=== PATIENT | male | born 1985 | race Caucasian/White ===

== ENCOUNTER 2020-05-05 23:28 | Emergency (ER) | payer OTHER ==
[2020-05-05] MEDS ORDERED: LORAZEPAM INJ 2 MG/1 ML VIAL IV ONE (23:45)
--- NOTE | 2020-05-05 23:51 | ER Document Report ---
ED General - General Chief Complaint: Shortness Of Breath Stated Complaint: SHORT OF BREATH Time Seen by Provider: 05/05/20 23:36 Primary Care Provider: MILES ROQUE MD [ACTIVE STAFF] - 05/08/20 Notes: Patient is a 34-year-old male who comes emergency department for chief complaint of feeling short of breath, palpitations, and a squeezing tightness sensation across his chest for the past several hours. EMS reports that his initial heart rate was in the 170s, we did have him perform vagal maneuvers and they were g oing to do adenosine but patient declined. Patient states that he has resting tachycardia, his average heart rate is 90-110 with frequent elevations beyond this. Patient states he has had this ever since he was electrocuted in the , he is not on any rate control or cardiac medications, his only medication is Percocet for chronic back pain. He denies recreational drugs, smoking, stimulants/caffeine. He does report developing a cough for the past day or so, he denies fever, he denies any other complaints. - Related Data Allergies/Adverse Reactions: No Known Allergies Allergy (Unverified 11/02/12 12:53) Past Medical History - General Information source: Patient - Social History Smoking Status: Never Smoker Frequency of alcohol use: Occasional Drug Abuse: None Lives with: Family Family History: Reviewed & Not Pertinent Past Surgical History: Reports: Hx Orthopedic Surgery - elbow surgery - Immunizations Immunizations up to date: Yes Hx Diphtheria, Pertussis, Tetanus Vaccination: Yes Review of Systems - Review of Systems Constitutional: No symptoms reported EENT: No symptoms reported Cardiovascular: See HPI Respiratory: No symptoms reported Gastrointestinal: No symptoms reported Genitourinary: No symptoms reported Male Genitourinary: No symptoms reported Musculoskeletal: No symptoms reported Skin: No symptoms reported Hematologic/Lymphatic: No symptoms reported Neurological/Psychological: No symptoms reported Physical Exam - Vital signs Vitals: Resp Pulse Ox 17 98 05/05/20 23:43 05/05/20 23:43 - Notes Notes: GENERAL: Alert, interacts well. Patient speaks anxiously and appears worried but otherwise does not appear to be in distress HEAD: Normocephalic, atraumatic. EYES: Pupils equal, round, and reactive to light. Extraocular movements intact. ENT: Oral mucosa moist, tongue midline. Oropharynx unremarkable. Airway patent. NECK: Full range of motion. Supple. Trachea midline. No lymphadenopathy. LUNGS: Clear to auscultation bilaterally, no wheezes, rales, or rhonchi. No respiratory distress. Non-tender chest wall. HEART: Tachycardic, normal rhythm, no murmur ABDOMEN: Soft, non-tender. Non-distended. EXTREMITIES: Moves all 4 extremities spontaneously. No edema, normal radial and dorsalis pedis pulses bilaterally. No cyanosis. BACK: no cervical, thoracic, lumbar midline tenderness. No saddle anesthesia, normal distal neurovascular exam. Moves all extremities in full range of motion. NEUROLOGICAL: Alert and oriented x3. Normal speech. Cranial nerves II through XII grossly intact. Strength 5/5 in all extremities. PSYCH: Anxious and restless SKIN: Warm, dry, normal turgor. No rashes or lesions noted. Course - Re-evaluation Re-evalutation: On my initial evaluation patient is somewhat anxious in appearance, he is tachycardic, however he does not have chest pain, he has an unremarkable abdomen, he has no complaints at this time. Work-up pending. Given small amount of Ativan for anxiety. EKG unremarkable, CBC and chemistry unremarkable except for elevated LFTs with AST greater than ALT, troponin is negative, TSH unremarkable, magnesium unremarkable. Chest x-ray unremarkable. D-dimer is not elevated. Alcohol was checked and is significantly elevated. Patient does not appear significantly intoxicated however. I discussed with patient details at length. After IV fluids his tachycardia actually did resolve. Urinalysis and urine drug screen unremarkable. Patient did not exam chest pain, just the palpitations and he did feel short of breath earlier but this resolved after his tachycardia resolved. I discussed with patient, he is requesting referral to local cardiology, I discussed potential detox but patient states he does not need this, he states he does not drink regularly or have alcohol dependence. I advised him to avoid alcohol intoxication especially with his tachycardia history, I discussed expectations, follow-up, return cautions. Patient states appreciation and agreement. Patient is clinically sober with no slurring of speech, normal ambulation, he will be getting a ride home. - Vital Signs Vital signs: Temp Pulse Resp BP Pulse Ox 98.5 F 25 H 114/79 95 05/06/20 04:46 05/06/20 03:45 05/06/20 04:15 05/06/20 04:15 - Laboratory Result Diagrams: 05/06/20 00:15 05/06/20 00:15 Laboratory results interpreted by me: 05/06/20 05/06/20 00:15 00:15 WBC 3.8 L RBC 4.20 L MCH 33.9 H BUN 6 L Glucose 156 H AST 199 H ALT 87 H - EKG Interpretation by Me Additional EKG results interpreted by me: EKG shows sinus tachycardia at a rate of 110, QTc of 450, normal axis, no T wave inversions or ST segment changes in consecutive leads Discharge - Discharge Clinical Impression: Shortness of breath, Heart palpitations Alcohol intoxication Qualifiers: Complication of substance-induced condition: with unspecified complication Qualified Code(s): F10.929 - Alcohol use, unspecified with intoxication, unspecified Condition: Stable Disposition: HOME, SELF-CARE Additional Instructions: You have been treated with IV hydration for your symptoms tonight. Your work-up is reassuring. Your liver function tests were elevated, your alcohol level was high tonight, I recommend avoid drinking to intoxication especially with your heart/palpitations history. Please follow-up closely with the cardiology referral for additional management of palpitations. Return if you worsen including chest pain, passing out, or any other concerning or worsening symptoms. Forms: Return to Work Referrals: MILES ROQUE MD [ACTIVE STAFF] - 05/08/20
--- NOTE | 2020-05-06 00:23 | RADIOLOGY REPORT (SQ) ---
EXAM DESCRIPTION: XR CHEST 1 VIEW COMPLETED DATE/TME: 05/05/2020 23:44 CLINICAL HISTORY: 34 years, Male, shortness of breath COMPARISON: None. NUMBER OF VIEWS: 1 TECHNIQUE: Portable chest LIMITATIONS: None. FINDINGS: The heart size is normal. Lungs are clear. No pneumothorax IMPRESSION: Negative chest copyright 2011 [employer]- All Rights Reserved
[2020-05-06 00:29] LABS: ABSOLUTE EOSINOPHILS # (AUTO) 0.1 10^3/uL (0.0-0.6); ABSOLUTE LYMPHOCYTES (AUTO) 1.1 10^3/uL (0.5-4.7); ABSOLUTE MONOCYTES (AUTO) 0.3 10^3/uL (0.1-1.4); ABSOLUTE NEUT (AUTO) 2.2 10^3/uL (1.7-8.2); BASOPHILS % (AUTO) 1.2 % (0-2); EOSINOPHILS % (AUTO) 2.8 % (0-6); HEMATOCRIT 40.2 % (37.9-51.0); HEMOGLOBIN 14.2 g/dL (13.5-17.0); LYMPHOCYTES % (AUTO) 29.7 % (13-45); MEAN CORPUSCULAR HEMOGLOBIN 33.9 pg (27.0-33.4); MEAN CORPUSCULAR HGB CONC 35.4 g/dL (32.0-36.0); MEAN CORPUSCULAR VOLUME 96 fl (80-97); MONOCYTES % (AUTO) 7.9 % (3-13); PLATELET COUNT 257 10^3/uL (150-450); RED CELL DISTRIBUTION WIDTH 13.5 % (11.5-14.0); SEGMENTED NEUTROPHILS % (AUTO) 58.4 % (42-78); TOTAL CELLS COUNTED % (AUTO) 100 %; WHITE BLOOD COUNT 3.8 10^3/uL (4.0-10.5)
[2020-05-06 00:52] LABS: ALBUMIN 4.5 g/dL (3.5-5.0); ALKALINE PHOSPHATASE 68 U/L (38-126); ANION GAP 18 (5-19); ASPARTATE AMINO TRANSFERASE 199 U/L (17-59); BILIRUBIN,DIRECT 0.3 mg/dL (0.0-0.4); BILIRUBIN,TOTAL 0.6 mg/dL (0.2-1.3); BLOOD UREA NITROGEN 6 mg/dL (7-20); CALCIUM 8.8 mg/dL (8.4-10.2); CARBON DIOXIDE 23 mmol/L (22-30); CHLORIDE 99 mmol/L (98-107); GLUCOSE 156 mg/dL (75-110); TOTAL PROTEIN 6.7 g/dL (6.3-8.2)
[2020-05-06] MEDS ORDERED: NORMAL SALINE 1000 ML 1,000 ML IV ONE (02:28)
[2020-05-06 04:15] LABS: APPEARANCE,URINE CLEAR; BILIRUBIN,URINE NEGATIVE (NEGATIVE); COLOR,URINE STRAW; GLUCOSE, URINE NEGATIVE (NEGATIVE); KETONES,URINE NEGATIVE (NEGATIVE); LEUKOCYTE ESTERASE,URINE NEGATIVE (NEGATIVE); NITRITE,URINE NEGATIVE (NEGATIVE); PROTEIN,URINE NEGATIVE (NEGATIVE); URINE SPECIFIC GRAVITY 1.003; UROBILINOGEN,URINE NEGATIVE mg/dL (<2.0)
[2020-05-06 04:30] VITALS: BP 114/79
[2020-05-06 04:33] LABS: URINE AMPHETAMINES SCREEN NEGATIVE; URINE BARBITURATES SCREEN NEGATIVE; URINE BENZODIAZEPINES SCREEN NEGATIVE; URINE COCAINE SCREEN NEGATIVE; URINE MARIJUANA (THC) SCREEN NEGATIVE; URINE METHADONE SCREEN NEGATIVE; URINE PHENCYCLIDINE SCREEN NEGATIVE
--- NOTE | 2020-05-06 22:04 | EKG REPORT ---
SEVERITY:- OTHERWISE NORMAL ECG - SINUS TACHYCARDIA : Confirmed by: Barbara Tellez 06-May-2020 22:03:28
== END 2020-05-06 04:48 | disposition home or self-care (01) ==
LOC: ER 23:28
DX: R06.02 Shortness of breath (principal); F10.129 Alcohol abuse with intoxication, unspecified; F41.9 Anxiety disorder, unspecified; R00.2 Palpitations; R05 Cough; R00.0 Tachycardia, unspecified; R74.01 Elevation of levels of liver transaminase levels; R07.89 Other chest pain; M54.9 Dorsalgia, unspecified; G89.29 Other chronic pain; Z79.891 Long term (current) use of opiate analgesic
CPT/HCPCS: 93005; 99285; 96361; 96374; 36415; 80307 ×2; 83735; 84443; 85025; 80053; 81001; 84484; 85379; 71045; 93010; J2060; J7030